=== PATIENT | male | born 1950 | race Caucasian/White ===

== ENCOUNTER 2020-12-13 22:27 | Emergency (ER) | payer OTHER, MEDICAID, SELFPAY ==
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
[2020-12-13 22:34] VITALS: BP 138/90; PULSE 100; PULSE 97; RESP 20; O2SAT 97; O2SAT 98; BMI 25.7
[2020-12-13 22:39] VITALS: BP 100/71
[2020-12-13 23:36] LABS: Basophils Absolute Auto 0.1 X10*3/uL (0.0-0.2); Basophils Percent Auto 0.3 % (0-2); Eosinophils Percent Auto 0.1 % (0-4); Hematocrit 44.3 % (42-52); Hemoglobin 14.5 g/dl (14.0-18.0); Imm Gran Abs Auto 0.08 X10*3/uL (0.00-0.03); Imm Gran Pct Auto 0.3 % (0.0-0.4); Lymphocytes Percent Auto 80.7 % (20-40); MANUAL DIFF FLAG SCAN; Mean Corpuscular HGB Conc 32.7 g/dl (31.0-36.0); Mean Corpuscular Hemoglobin 30.5 pg (27.0-33.0); Mean Corpuscular Volume 93.1 fL (80-98); Mean Platelet Volume 9.9 fL (9.4-12.4); Monocytes Absolute Auto 0.3 X10*3/uL (0.1-1.2); Neutrophils Absolute Auto 5.6 X10*3/uL (2.0-8.3); Neutrophils Percent Auto 17.6 % (45-73); Platelet Count 320 X10*3/uL (160-400); Red Blood Count 4.76 X10*6/uL (4.60-5.80); Red Cell Distribution Width 17.2 % (11.0-16.0); SCAN SMEAR FLAG 1
[2020-12-13 23:37] LABS: Lymphocytes Absolute Auto 25.3 X10*3/uL (1.2-4.9)
[2020-12-13 23:39] LABS: White Blood Count 31.3 X10*3/uL (4.8-10.8)
[2020-12-13 23:42] LABS: COVID-19 Test Negative (Negative); IDNOW Serial# 9DD0AD1C
[2020-12-13 23:50] LABS: SLIDE REVIEW VERIFIED
[2020-12-13 23:51] LABS: Ethanol 365 mg/dL
[2020-12-13 23:53] LABS: Anion Gap 18 (12-20); Blood Urea Nitrogen 14 mg/dL (9-16); Carbon Dioxide 22 mmol/L (22-29); Chloride 104 mmol/L (96-108); Estimated Glomerular Filt Rate > 60; Glucose Random 118 mg/dL (60-115); Potassium 3.9 mmol/L (3.3-5.1); Sodium 140 mmol/L (135-145)
[2020-12-14] VITALS: BP 118/81; PULSE 105; RESP 18; TEMP 36.3; O2SAT 98
[2020-12-14] LABS: Carboxyhemoglobin 2.2 %
[2020-12-14 00:26] LABS: Glucose Urine UA NEG (NEG); Leukocyte Esterase Urine NEG (NEG); Nitrite Urine NEG (NEG); Urine Blood NEG (NEG); Urine Ketones NEG (NEG); Urine Protein NEG (NEG-TRACE)
[2020-12-14 00:27] LABS: Appearance Urine CLEAR; Color Urine YELLOW
[2020-12-14 01:19] VITALS: BP 125/87; PULSE 77; RESP 18; TEMP 36.6; O2SAT 98
[2020-12-14 04:00] VITALS: RESP 18
--- NOTE | 2020-12-14 08:18 | MHC.CM.PN ---
CM RECEIVED CONSULT FOR PT ON 12/14/20, CM ATTEMPTED TO MEET WITH PT AT 8:10AM HOWEVER PT HAD ALREADY BEEN DISCHARGED.
== END 2020-12-14 05:55 | disposition home or self-care (01) ==
PROVIDERS: Nurse Practitioner Family; Emergency Provider Emergency Medicine
DX: F10.920 Alcohol use, unspecified with intoxication, uncomplicated (principal); D72.820 Lymphocytosis (symptomatic); Y90.8 Blood alcohol level of 240 mg/100 ml or more; R05 Cough; F17.200 Nicotine dependence, unspecified, uncomplicated; Z71.6 Tobacco abuse counseling; Z20.822 Contact with and (suspected) exposure to COVID-19
CPT/HCPCS: 36415; 71046; 80048; 80320; 81003; 82375; 85025; 87635; 99284

== ENCOUNTER 2022-01-08 12:46 | Emergency (ER) | payer OTHER, MEDICAID, SELFPAY ==
[2022-01-08] VITALS (9 sets, daily range): BP systolic 106–151; BP diastolic 72–93; PULSE 122–155; RESP 12–18; TEMP 36.7; O2SAT 95–98; BMI 20.5
--- NOTE | 2022-01-08 | ECG_ITS ---
Test Reason : TACHYCARDIA Blood Pressure : / mmHG Vent. Rate : 142 BPM Atrial Rate : 000 BPM P-R Int : 000 ms QRS Dur : 094 ms QT Int : 308 ms P-R-T Axes : 000 -49 048 degrees QTc Int : 473 ms Atrial fibrillation with rapid ventricular response Left axis deviation Incomplete right bundle branch block Abnormal ECG When compared with ECG of 09-AUG-2018 21:02, Atrial fibrillation has replaced Sinus rhythm Vent. rate has increased BY 48 BPM Referred By: Stacie Harvey Electronically Signed By:SEAN OLIVA MD
--- NOTE | ~2022-01-08 | XR_ITS ---
EXAMINATION: XR CHEST CLINICAL INFORMATION: Rule out pulmonary edema COMPARISON: 12/14/2020 TECHNIQUE: Frontal view of the chest was obtained. FINDINGS: The cardiac silhouette appears enlarged compared to the prior study. There is no vascular congestion or pulmonary edema. Thick-walled airways throughout consistent with COPD/emphysema. Surgical staple line in the right upper lobe. Suspect retrocardiac airspace consolidation and possible effusion. XR/XR chest 1V IMPRESSION: The cardiac silhouette appears enlarged compared to the prior exam. No vascular congestion or pulmonary edema. Left basilar airspace consolidation and question small effusion. Emphysema.
--- NOTE | ~2022-01-08 | CT_ITS ---
EXAMINATION: CT HEAD WITHOUT CONTRAST CLINICAL INFORMATION: EtOH, fall, Eliquis. COMPARISON: 08/09/2018 TECHNIQUE: Contiguous axial imaging was performed from the skull base to vertex without intravenous administration of contrast. This CT examination was performed using dose optimization techniques as appropriate, variously including the following: *Automated exposure control *Adjustment of mA and/or kV according to patient size (this includes techniques or standardized protocols for targeted exams where dose is matched to indication/reason for exam; i.e. extremities or head) *Use of iterative reconstruction technique DLP: 812 mGy-cm FINDINGS: There is no evidence of acute intracranial hemorrhage or territorial infarction. No abnormal mass effect or midline shift is seen. Schultz to white matter differentiation is well preserved. No extra-axial fluid collections are identified. The ventricles and sulcal spaces are commensurately prominent consistent with volume loss. Mild small vessel ischemic changes in the periventricular white matter are similar to prior. No calvarial or fracture. No scalp hematoma. Mild bilateral maxillary sinus disease. The mastoid air cells are patent. CT/CT head/brain wo con IMPRESSION: No acute intracranial hemorrhage.
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
--- NOTE | 2022-01-08 13:17 | ED_ITS ---
HPI - General Adult General Chief complaint: General Medical Stated complaint: ETOH Time Seen by Provider: 01/08/22 12:59 Source: patient and EMS Mode of arrival: EMS Limitations: other (Alcohol intoxication) History of Present Illness HPI narrative: Patient comes to the emergency room via EMS. Patient lives in an independent living facility. Per EMS, patient was found on the floor by a neighbor. It is unclear if patient hit his head or loss consciousness. Patient does not remember. Patient has history of atrial fibrillation, states he takes Eliquis. Per EMS, they also noted that patient also takes metoprolol. Patient states he is compliant with meds medications. Patient states that he does not know any of the medications that he takes. Patient states that he drank a bottle of bourbon. Patient states that he feels well, denies headache or neck injury, no hip pain. Patient denies chest pain, shortness of breath, no suicidal or homicidal ideation. Related Data Home Medications Medication Instructions Recorded Confirmed albuterol sulfate 90 mcg/actuation 2 puff INHALATION QID PRN 01/08/22 01/08/22 aerosol inhaler (Proventil HFA) apixaban 5 mg tablet 5 mg PO BID 01/08/22 01/08/22 atorvastatin 20 mg tablet 10 mg PO DAILY 01/08/22 01/08/22 calcium carbonate 500 mg calcium 500 mg PO Q3H PRN 01/08/22 01/08/22 (1,250 mg) chewable tablet cholecalciferol (vitamin D3) 25 25 mcg PO DAILY 01/08/22 01/08/22 mcg (1,000 unit) tablet citalopram 10 mg tablet 10 mg PO DAILY 01/08/22 01/08/22 diclofenac sodium 1 % topical gel 2 g TOPICAL TID 01/08/22 01/08/22 diltiazem HCl 180 mg capsule,24 360 mg PO DAILY 01/08/22 01/08/22 hr,extended release famotidine 20 mg tablet 20 mg PO BID 01/08/22 01/08/22 ferrous sulfate 324 mg (65 mg 324 mg PO BID 01/08/22 01/08/22 iron) tablet,delayed release gabapentin 800 mg tablet 800 mg PO BEDTIME 01/08/22 01/08/22 lactase 3,000 unit chewable tablet 3,000 unit PO TIDAC 01/08/22 01/08/22 loperamide 2 mg capsule 2 mg PO TID PRN 01/08/22 01/08/22 magnesium oxide 500 mg tablet 500 mg PO BID 01/08/22 01/08/22 melatonin 10 mg tablet 10 mg PO BEDTIME PRN 01/08/22 01/08/22 metoprolol succinate 25 mg 25 mg PO DAILY 01/08/22 01/08/22 tablet,extended release 24 hr mirtazapine 15 mg tablet 15 mg PO BEDTIME 01/08/22 01/08/22 multivitamin 1 tab PO DAILY 01/08/22 01/08/22 nicotine 14 mg/24 hr daily 1 patch TRANSDERMAL DAILY 01/08/22 01/08/22 transdermal patch pantoprazole 40 mg tablet,delayed 40 mg PO DAILY 01/08/22 01/08/22 release tamsulosin 0.4 mg capsule (Flomax) 0.4 mg PO BEDTIME 01/08/22 01/08/22 thiamine HCl (vitamin B1) 100 mg 100 mg PO DAILY 01/08/22 01/08/22 tablet tiotropium bromide 18 mcg capsule 1 cap INHALATION DAILY 01/08/22 01/08/22 with inhalation device (Spiriva with HandiHaler) trazodone 50 mg tablet 50 mg PO BEDTIME 01/08/22 01/08/22 Allergies Allergy/AdvReac Type Severity Reaction Status Date / Time No Known Allergies Allergy Verified 01/08/22 13:04 [No Known Allergies*] Review of Systems 2 Review of Systems: Constitutional : No Weight loss, No Fever, No Chills, No Night Sweats, No Fatigue, No Malaise ENT/Mouth : No Hearing loss, No Ear Pain, No Nasal Congestion, No Sinus Pain, No Hoarseness, No sore throat, No Rhinorrhea, No Swallowing Difficulty Eyes: No Eye Pain, No Swelling, No Redness, No Foreign Body, No Discharge, No Vision Changes Cardiovascular : No Chest Pain, No SOB, No Dyspnea on Exertion, No Orthopnea, No Edema, complaining of chronic palpitations Respiratory : No Cough, No Sputum, No Wheezing, No Smoke Exposure, No Dyspnea Gastrointestinal : No Nausea, No Vomiting, No Diarrhea, No Constipation, No abdominal Pain, No Hematochezia, No Melena Genitourinary : no irregular bleeding, No Dysuria, No Urinary Frequency, No Hematuria, No Urinary Incontinence, No Urgency, No Flank Pain, No Urinary Flow Changes, No Hesitancy Musculoskeletal : No joint pain, No Myalgias, No Joint Swelling Skin : No Skin Lesions, No rash Neuro : No Weakness, No Numbness, No Paresthesias, No Loss of Consciousness, No Dizziness, No Headache Psych : No Anxiety/Panic, No Depression, No SI/HI/AH/VH, No Social Issues, Heme/Lymph: No Bruising, No Bleeding,No Lymphadenopathy Endocrine : No Polyuria, No Polydipsia, No Temperature Intolerance [facility] Past Medical History Medical History (Updated 01/08/22 @ 19:21 by Stacie Harvey MD) Alcoholism Atrial fibrillation H/O: lung cancer Social History Social History Alcohol intake: current Alcohol intake frequency: 3 or more drinks per day Alcohol type: hard liquor Advance Directives: No Advance Directives Information Provided: No Physical Exam ED Vital Signs: Vital Signs - 24 hr 01/08/22 13:04 01/08/22 13:25 01/08/22 13:26 Temperature 98.1 F Pulse Rate 155 H 145 H 133 H Respiratory Rate 12 Blood Pressure 151/91 H 126/93 H 125/78 Pulse Oximetry 96 98 01/08/22 13:53 01/08/22 14:17 01/08/22 14:21 Temperature Pulse Rate 126 H 137 H 126 H Respiratory Rate 14 14 Blood Pressure 125/78 119/82 106/78 Pulse Oximetry 96 95 01/08/22 14:37 01/08/22 15:11 01/08/22 17:24 Temperature Pulse Rate 133 H 122 H 136 H Respiratory Rate 14 15 18 Blood Pressure 114/72 135/86 Pulse Oximetry 98 96 BMI result Body Mass Index 20.5 Const Other: Appearance: Alert. Oriented X3. No acute distress. Seems intoxicated Eyes: Pupils equal, round and reactive to light. ENT: Pharynx normal. Neck: Normal inspection. Neck supple. No lymph nodes noted. No crepitus CVS: Irregularly irregular heart rate of 160, Pulses normal. Normal S1 and S2 Respiratory: No respiratory distress. Breath sounds normal. No Wheezing. No rales Abdomen: Soft and nontender. No rigidity. No distention. good BS x4 Skin: Skin warm and dry. Normal skin color. Normal skin turgor. Extremities: No lower extremity edema. No Lacerations. No Rash Neuro: Oriented X 3. No motor deficit. No sensory deficit. Moving all extermities. No slurred speech. Cranial nerves 2-12 was intact Psych: Calm, cooperative, slightly intoxicated Course Course Course Narrative: When patient arrived, it was noted that the patient's heart rate is between 150 and 160, EKG shows atrial fibrillation. Patient denies any chest pain, states that he has chronic palpitations. States he is compliant with this medication but does not know which medications. Per EMS, patient takes metoprolol. Patient also takes Eliquis per EMS After 1 dose of metoprolol 5 mg IV, heart rate improved from 160-120. Patient's blood pressure 125 currently. Patient will receive another dose of IV metoprolol. Our pharmacist call the patient's pharmacy, seems that patient is not either on metoprolol or Eliquis. At this time, patient states that he does not know where he picks up his medication. When patient is more sober, will try again. After 2nd dose of metoprolol, patient's heart rate remains in the 120s, blood pressure 114. Patient was given 1 dose of calcium gluconate to prevent hypotension, since we are switching now to Cardizem push, patient may need Cardizem drip. Patient's blood pressure 134 systolic, heart rate still in the 140s despite 2 doses of metoprolol. Patient will be given 1 dose of Cardizem 20 mg. Patient is sobering up. We were able to obtain information from the pace program or the patient gets his medication. He is supposed to be on Cardizem, metoprolol, Eliquis. We were informed that the patient is not compliant with his medications. I discussed with the patient that it is likely that he will end up staying if he cannot control his heart rate. Patient states that he refuses admission. Patient is concerned about his cat at home. The patient has pace program, states that they are trying to get a legal guardian for the patient. At this time, patient is his own healthcare proxy. Patient was given 20 mg of Cardizem, heart rate now ranging from 90-110. Patient asymptomatic. Blood pressure 135 systolic. Patient's BNP is elevated, chest x-ray shows pleural effusions. I discussed with the patient that he should be admitted for some new onset CHF exacerbation. As mentioned above, patient declined. Patient states he has a cat and will not accept admission. At this time, patient is clinically sober. Patient has normal gait. As mentioned above, patient declined hospitalization. Medical Decision Making Lab Data Result diagrams: 01/08/22 13:21 01/08/22 13:21 Labs: Lab Results 01/08/22 01/08/22 01/08/22 Range/Units 13:21 13:21 13:21 WBC 21.4 H (4.8-10.8) X10*3/uL RBC 4.18 L (4.60-5.80) X10*6/uL Hgb 13.2 L (14.0-18.0) g/dl Hct 40.8 L (42.0-52.0) % MCV 97.6 (80.0-98.0) fL MCH 31.6 (27.0-33.0) pg MCHC 32.4 (31.0-36.0) g/dl RDW 18.2 H (11.0-16.0) % Plt Count 132 L (160-400) X10*3/uL MPV 9.7 (9.4-12.4) fL Immature Gran % (Auto) Cancelled Neut % (Auto) Cancelled Lymph % (Auto) Cancelled Bureau % (Auto) Cancelled Eos % (Auto) Cancelled Baso % (Auto) Cancelled Lymph # (Auto) Cancelled Bureau # (Auto) Cancelled Eos # (Auto) Cancelled Baso # (Auto) Cancelled Abs Immat Gran (auto) Cancelled Absolute Neuts (auto) Cancelled Absolute Nucleated RBC 0.000 (0.0-0.012) X10*3/uL Nucleated RBC % (auto) 0.0 (0.0-0.2) /100WBC Neutrophils % (Manual) 15 L (45-73) % Band Neutrophils % 0 L (3-5) % Lymphocytes % (Manual) 84 H (20-40) % Basophils % (Manual) 1 (0-2) % Abs Neuts (Manual) 3.2 (2.0-8.3) X10*3/uL Lymphocytes # (Manual) 18.0 H (1.2-4.9) X10*3/uL Basophils # (Manual) 0.2 (0.0-0.2) X10*3/uL Smudge Cells PRESENT Platelet Estimate DECREASED (NORMAL) Plt Morphology Comment NORMAL RBC Morphology NOTED Hypochromasia 1+ (5-14) /OIF Ovalocytes 1+ (5-14) /OIF Acanthocytes (Spur) 1+ (0-2) /OIF Sodium 147 H (135-145) mmol/L Potassium 4.2 (3.3-5.1) mmol/L Chloride 110 H (96-108) mmol/L Carbon Dioxide 25 (22-29) mmol/L Anion Gap 16 (12-20) BUN 13 (9-16) mg/dL Creatinine 0.95 (0.5-1.4) mg/dL Estim Creat Clear Calc 73.2 Estimated GFR > 60 POC Glucose (60-115) mg/dL Random Glucose 102 (60-115) mg/dL Calcium 9.3 (8.4-10.2) mg/dL Magnesium 1.7 (1.6-2.6) mg/dL Total Bilirubin 0.4 (0.0-1.0) mg/dL Direct Bilirubin 0.2 (0.0-0.5) mg/dL AST 21 (5-37) U/L ALT 14 (0-40) U/L Alkaline Phosphatase 71 (39-117) U/L Troponin I High Sens 18.0 (<3.5-35.0) ng/L B-Natriuretic Peptide 563 H (<100) pg/mL Total Protein 6.3 L (6.5-8.0) g/dL Albumin 4.1 (3.5-5.0) g/dL Ethyl Alcohol mg/dL COVID-19 (JADEN) (Negative) COVID-19 Clin Com 01/08/22 01/08/22 01/08/22 Range/Units 13:21 13:21 13:25 WBC (4.8-10.8) X10*3/uL RBC (4.60-5.80) X10*6/uL Hgb (14.0-18.0) g/dl Hct (42.0-52.0) % MCV (80.0-98.0) fL MCH (27.0-33.0) pg MCHC (31.0-36.0) g/dl RDW (11.0-16.0) % Plt Count (160-400) X10*3/uL MPV (9.4-12.4) fL Immature Gran % (Auto) Neut % (Auto) Lymph % (Auto) Bureau % (Auto) Eos % (Auto) Baso % (Auto) Lymph # (Auto) Bureau # (Auto) Eos # (Auto) Baso # (Auto) Abs Immat Gran (auto) Absolute Neuts (auto) Absolute Nucleated RBC (0.0-0.012) X10*3/uL Nucleated RBC % (auto) (0.0-0.2) /100WBC Neutrophils % (Manual) (45-73) % Band Neutrophils % (3-5) % Lymphocytes % (Manual) (20-40) % Basophils % (Manual) (0-2) % Abs Neuts (Manual) (2.0-8.3) X10*3/uL Lymphocytes # (Manual) (1.2-4.9) X10*3/uL Basophils # (Manual) (0.0-0.2) X10*3/uL Smudge Cells Platelet Estimate (NORMAL) Plt Morphology Comment RBC Morphology Hypochromasia /OIF Ovalocytes /OIF Acanthocytes (Spur) /OIF Sodium (135-145) mmol/L Potassium (3.3-5.1) mmol/L Chloride (96-108) mmol/L Carbon Dioxide (22-29) mmol/L Anion Gap (12-20) BUN (9-16) mg/dL Creatinine (0.5-1.4) mg/dL Estim Creat Clear Calc Estimated GFR POC Glucose 97 (60-115) mg/dL Random Glucose (60-115) mg/dL Calcium (8.4-10.2) mg/dL Magnesium (1.6-2.6) mg/dL Total Bilirubin (0.0-1.0) mg/dL Direct Bilirubin (0.0-0.5) mg/dL AST (5-37) U/L ALT (0-40) U/L Alkaline Phosphatase (39-117) U/L Troponin I High Sens (<3.5-35.0) ng/L B-Natriuretic Peptide (<100) pg/mL Total Protein (6.5-8.0) g/dL Albumin (3.5-5.0) g/dL Ethyl Alcohol 375 H* mg/dL COVID-19 (JADEN) Negative (Negative) COVID-19 Clin Com See Note Imaging Data CT scan - head: Radiologist's impression: [id number] [place] [address] CT Scan Report Signed Patient: Bobby Matthews MR#: [id number] : 1950 Acct:[id number] Age/Sex: 71 / M ADM Date: 01/08/22 Loc: HO.ED Attending Dr: Ordering Physician: Stacie Harvey MD Date of Service: 01/08/22 Procedure(s): CT head/brain wo con Accession Number(s): [id number] cc: Stacie Harvey MD~ EXAMINATION: CT HEAD WITHOUT CONTRAST CLINICAL INFORMATION: EtOH, fall, Eliquis.? COMPARISON: 08/09/2018 TECHNIQUE: Contiguous axial imaging was performed from the skull base to vertex without intravenous administration of contrast. This CT examination was performed using dose optimization techniques as appropriate, variously including the following: *Automated exposure control *Adjustment of mA and/or kV according to patient size (this includes techniques or standardized protocols for targeted exams where dose is matched to indication/reason for exam; i.e. extremities or head) *Use of iterative reconstruction technique DLP: 812 mGy-cm FINDINGS: There is no evidence of acute intracranial hemorrhage or territorial infarction. No abnormal mass effect or midline shift is seen. Schultz to white matter differentiation is well preserved. No extra-axial fluid collections are identified. The ventricles and sulcal spaces are commensurately prominent consistent with volume loss. Mild small vessel ischemic changes in the periventricular white matter are similar to prior. No calvarial or fracture. No scalp hematoma. Mild bilateral maxillary sinus disease. The mastoid air cells are patent. ? CT/CT head/brain wo con IMPRESSION: No acute intracranial hemorrhage. Discharge Plan Discharge Clinical Impression: Alcohol intoxication, Atrial fibrillation with rapid ventricular response, New onset of congestive heart failure Patient Disposition: Left Against Medical Advice Instructions: Heart Failure (ED), A-fib (Atrial Fibrillation) (ED), Abuse of Alcohol (DC) Additional Instructions: You refused to be admitted to the hospital. Please make sure you take your medications as prescribed and to not skip any doses. Please follow-up with your primary care physician tomorrow. If you have any worsening or new symptoms, please return to the emergency room or call 911 Prescriptions: No Action atorvastatin 20 mg Tablet 10 mg PO DAILY 0RF nicotine 14 mg/24 hr Patch 24 Hour 1 patch TRANSDERMAL DAILY 0RF loperamide 2 mg Capsule 2 mg PO TID PRN (Reason: Diarrhea) 0RF trazodone 50 mg Tablet 50 mg PO BEDTIME 0RF famotidine 20 mg Tablet 20 mg PO BID 0RF lactase 3,000 unit Tablet,Chewable 3,000 unit PO TIDAC 0RF Rx Instructions: administer with meals and/or snacks multivitamin Tablet 1 tab PO DAILY 0RF diltiazem HCl 180 mg Capsule,Extended Release 24 Hr 360 mg PO DAILY 0RF citalopram 10 mg Tablet 10 mg PO DAILY 0RF thiamine HCl (vitamin B1) 100 mg Tablet 100 mg PO DAILY 0RF tamsulosin [Flomax] 0.4 mg Capsule 0.4 mg PO BEDTIME 0RF gabapentin 800 mg Tablet 800 mg PO BEDTIME 0RF pantoprazole 40 mg Tablet,Delayed Release (Dr/Ec) 40 mg PO DAILY 0RF magnesium oxide 500 mg Tablet 500 mg PO BID 0RF calcium carbonate 500 mg calcium (1,250 mg) Tablet,Chewable 500 mg PO Q3H PRN (Reason: Heartburn) 0RF mirtazapine 15 mg Tablet 15 mg PO BEDTIME 0RF metoprolol succinate 25 mg Tablet Extended Release 24 Hr 25 mg PO DAILY 0RF albuterol sulfate [Proventil HFA] 90 mcg/actuation Hfa Aerosol Inhaler 2 puff INHALATION QID PRN (Reason: Shortness Of Breath) 0RF Spiriva with HandiHaler 18 mcg Capsule, W/Inhalation Device 1 cap INHALATION DAILY 0RF Rx Instructions: puncture 1 cap using device; one dose = 2 inhalations cholecalciferol (vitamin D3) 25 mcg (1,000 unit) Tablet 25 mcg PO DAILY 0RF ferrous sulfate 324 mg (65 mg iron) Tablet,Delayed Release (Dr/Ec) 324 mg PO BID 0RF diclofenac sodium 1 % Gel 2 g TOPICAL TID 0RF Rx Instructions: apply to single elbow, wrist or hand; for hand includes palm/fingers/back of hand melatonin 10 mg Tablet 10 mg PO BEDTIME PRN (Reason: Insomnia) 0RF apixaban 5 mg Tablet 5 mg PO BID 0RF
[2022-01-08] MEDS: Metoprolol Tartrate 5 MG/5 ML VIAL IVPUSH ×2 (13:19→14:17)
[2022-01-08 13:28] LABS: Hematocrit 40.8 % (42.0-52.0); Hemoglobin 13.2 g/dl (14.0-18.0); Mean Corpuscular HGB Conc 32.4 g/dl (31.0-36.0); Mean Corpuscular Hemoglobin 31.6 pg (27.0-33.0); Mean Corpuscular Volume 97.6 fL (80.0-98.0); Mean Platelet Volume 9.7 fL (9.4-12.4); Platelet Count 132 X10*3/uL (160-400); Red Blood Count 4.18 X10*6/uL (4.60-5.80); Red Cell Distribution Width 18.2 % (11.0-16.0)
[2022-01-08 13:31] LABS: WBC ABN SCTR FOR CBC 1; White Blood Count 21.4 X10*3/uL (4.8-10.8)
[2022-01-08 13:33] LABS: Glucose, Whole Blood 97 mg/dL (60-115)
[2022-01-08 13:45] LABS: Ethanol 375 mg/dL
[2022-01-08 13:49] LABS: Alanine Aminotransferase 14 U/L (0-40); Albumin Level 4.1 g/dL (3.5-5.0); Alkaline Phosphatase 71 U/L (39-117); Anion Gap 16 (12-20); Aspartate Amino Transferase 21 U/L (5-37); Bilirubin Direct 0.2 mg/dL (0.0-0.5); Bilirubin Total 0.4 mg/dL (0.0-1.0); Blood Urea Nitrogen 13 mg/dL (9-16); Calcium 9.3 mg/dL (8.4-10.2); Carbon Dioxide 25 mmol/L (22-29); Chloride 110 mmol/L (96-108); Creatinine Clr Calc Pharmacy 73.2; Estimated Glomerular Filt Rate > 60; Glucose Random 102 mg/dL (60-115); Magnesium 1.7 mg/dL (1.6-2.6); Potassium 4.2 mmol/L (3.3-5.1); Sodium 147 mmol/L (135-145); Total Protein 6.3 g/dL (6.5-8.0)
[2022-01-08 13:50] LABS: Band Neutrophils Percent 0 % (3-5); Basophils Abs Manual 0.2 X10*3/uL (0.0-0.2); Basophils Percent Manual 1 % (0-2); Lymphocytes Percent Manual 84 % (20-40); Neutrophils Absolute Manual 3.2 X10*3/uL (2.0-8.3); Neutrophils Percent Manual 15 % (45-73)
[2022-01-08 13:51] LABS: Acanthocytes 1+ (0-2) /OIF; Hypochromasia 1+ (5-14) /OIF; Ovalocytes 1+ (5-14) /OIF; Platelet Estimate DECREASED (NORMAL); Platelet Morphology Comment NORMAL; RBC Morphology NOTED; Smudge Cells PRESENT
[2022-01-08 13:52] LABS: B Type Natriuretic Peptide 563 pg/mL (<100)
[2022-01-08 14:03] LABS: COVID-19 Test Negative (Negative)
--- NOTE | 2022-01-08 14:41 | PHA.MEDREC ---
Pharmacy Consult ? Medication Reconciliation Pharmacy has completed the medication reconciliation. Patient is intoxicated and i was unable to get any information out him. Emergency contact number is a non working number. Contacted [place] for med list which was entered. Left message for evening pharmacist to follow up with patient when he coherent. Dr. Harvey was questioning if patient was on metoprolol and eliquis ( both meds are not filled at [facility]).
[2022-01-08] MEDS: Calcium Gluconate/NaCl,Iso-Osm 2 GM/100 ML PLAST..BAG IV (15:26)
--- NOTE | 2022-01-08 17:03 | MHC.CM.ED ---
CM received a T/C from Ana Vivas RN CM at [facility]. Pt is a client of [facility] and is well known to them. Pt has a hx of atrial fibrillation and is often times medication non-compliant. Pt is an alcoholic and often drinks, especially at the beginning of the month. [facility]'s Social Work department is very involved with this patient and they are in the process of filing for guardianship. Pt has no family and recently lost siblings. Did receive a fax from [facility], including face sheet and medication list. Will upload into [facility]. IVETH and MD reinoso.
[2022-01-08] MEDS: dilTIAZem HCL 50 MG/10 ML VIAL 20 MG IVPUSH (17:24)
--- NOTE | 2022-01-08 19:09 | PHA.MEDREC ---
Pharmacy Consult ? Medication Reconciliation Pharmacy has completed the medication reconciliation. WAS ABLE TO COMPLETE MED LIST BASED ON LIST FROM [employer] [facility] WHICH WAS FAXED TO THE ED @ 17:00 THIS EVENING
== END 2022-01-08 20:12 | disposition left against medical advice (07) ==
PROVIDERS: Emergency Provider Emergency Medicine
DX: I50.9 Heart failure, unspecified (principal); F10.220 Alcohol dependence with intoxication, uncomplicated; Y90.8 Blood alcohol level of 240 mg/100 ml or more; I48.20 Chronic atrial fibrillation, unspecified; Z91.14 Patient's other noncompliance with medication regimen; Z20.822 Contact with and (suspected) exposure to COVID-19
CPT/HCPCS: 70450; 71045; 80048; 80076; 82077; 82947; 83735; 83880; 84484; 85007; 85027; 87635; 93005; 96365; 96366; 96375; 99284; 99285; J0610

== ENCOUNTER 2022-05-11 17:34 | Emergency (ER) | payer OTHER, MEDICAID, SELFPAY ==
[2022-05-11 17:36] VITALS: BP 120/70; PULSE 60; O2SAT 96
[2022-05-11 17:51] VITALS: BP 117/68; PULSE 57; RESP 18; TEMP 36.1; O2SAT 97; BMI 28.3
== END 2022-05-11 21:23 | disposition left against medical advice (07) ==
LOC: HO.ED 21:19
PROVIDERS: Emergency Provider Emergency Medicine
DX: L03.032 Cellulitis of left toe (principal)
CPT/HCPCS: 99281

== ENCOUNTER 2023-12-05 13:46 | Day surgery (SDC) | payer OTHER, SELFPAY ==
[2023-11-26 15:11] VITALS: BMI 29.3
--- NOTE | 2023-12-05 13:56 | HO.ANESPROP2 ---
HPI - Anesthesia Eval Consult details Narrative: 73yo male patient for EGD PMFSH Active Problems Active Problems: All Active Problems (Updated 12/05/23 @ 13:57 by Qian Jorgensen MD) Atrial fibrillation (Acute) Alcoholism (Acute) Past Medical History Medical History Diabetes BPH (benign prostatic hyperplasia) Alcoholic liver disease Depression Anorexia Pulmonary nodule COPD (chronic obstructive pulmonary disease) Elevated cholesterol CHF (congestive heart failure) HTN (hypertension) Atrial fibrillation Alcoholism H/O: lung cancer Family History Family history of problems with anesthesia: No Surgical History Surgical History Hx of colonoscopy Hx of esophagogastroduodenoscopy Hx of cholecystectomy History of Problems with Anesthesia: No Social History Social History Alcohol intake: current Alcohol intake frequency: former alcohol drinker Alcohol type: hard liquor Patient Tobacco Use Status: Current everyday Tobacco user Tobacco use type: Cigarette Cigarettes Per Day: 7 Meds Allergies Allergy/AdvReac Type Severity Reaction Status Date / Time No Known Allergies Allergy Verified 12/05/23 14:05 [No Known Allergies*] Home Medications Medication Instructions Recorded Confirmed Last Taken Type albuterol sulfate 90 mcg/actuation 2 puff inhalation QID PRN 01/08/22 11/27/23 Unknown History aerosol inhaler (Proventil HFA) Shortness Of Breath atorvastatin 20 mg tablet 20 mg PO BEDTIME 01/08/22 11/27/23 Unknown History cholecalciferol (vitamin D3) 25 50 mcg PO DAILY 01/08/22 11/27/23 Unknown History mcg (1,000 unit) tablet citalopram 10 mg tablet 20 mg PO BEDTIME 01/08/22 11/27/23 Unknown History diltiazem HCl 180 mg capsule,24 360 mg PO DAILY 01/08/22 11/27/23 Unknown History hr,extended release gabapentin 800 mg tablet 800 mg PO BID 01/08/22 11/27/23 Unknown History lactase 3,000 unit chewable tablet 3,000 unit PO BEDTIME 01/08/22 11/27/23 Unknown History magnesium oxide 500 mg tablet 500 mg PO BEDTIME 01/08/22 11/27/23 Unknown History melatonin 10 mg tablet 10 mg PO BEDTIME PRN Insomnia 01/08/22 11/27/23 Unknown History metoprolol succinate 25 mg 25 mg PO DAILY 01/08/22 11/27/23 Unknown History tablet,extended release 24 hr multivitamin 1 tab PO BEDTIME 01/08/22 11/27/23 Unknown History pantoprazole 40 mg tablet,delayed 40 mg PO BEDTIME 01/08/22 11/27/23 Unknown History release tamsulosin 0.4 mg capsule (Flomax) 0.4 mg PO BEDTIME 01/08/22 11/27/23 Unknown History acalabrutinib maleate 100 mg 100 mg PO Q12H 11/27/23 11/27/23 Unknown History tablet (Calquence (acalabrutinib maleate)) aripiprazole 15 mg tablet 15 mg PO DAILY 11/27/23 11/27/23 Unknown History ferrous sulfate 325 mg (65 mg 325 mg PO BEDTIME 11/27/23 11/27/23 Unknown History iron) tablet hydrochlorothiazide 25 mg tablet 25 mg PO DAILY 11/27/23 11/27/23 Unknown History insulin glargine 100 unit/mL 30 unit subcut QPM 11/27/23 11/27/23 Unknown History subcutaneous solution lidocaine 5 % topical patch 1 patch topical DAILY 11/27/23 11/27/23 Unknown History metformin 1,000 mg tablet 1,000 mg PO BEDTIME 11/27/23 11/27/23 Unknown History psyllium husk (with sugar) 2.5 2 wafer PO DAILY 11/27/23 11/27/23 Unknown History gram oral wafer rivaroxaban 20 mg tablet (Xarelto) 20 mg PO QPM 11/27/23 11/27/23 12/02/23 History trazodone 300 mg tablet 300 mg PO BEDTIME 11/27/23 11/27/23 Unknown History umeclidinium 62.5 mcg-vilanterol 1 inh inhalation DAILY 11/27/23 11/27/23 Unknown History 25 mcg/actuation powdr for inhalation (Anoro Ellipta) Exam Height,Weight and Vital Signs: Height 6 ft 2 in Weight 103.419 kg Vital Signs Temp Pulse Resp BP Pulse Ox O2 Del Method 12/05/23 14:05 97.2 F 56 16 110/64 97 Room Air Pertinent Lab Results Pertinent Lab Results: Lab Results 12/05/23 Range/Units 14:06 POC Glucose 107 (60-115) mg/dL Airway Mallampati Class: II TM Dist: >3cm Neck ROM: Full Loose/Missing/Broken Teeth: Yes (Edentulous) Heart: Irregularly irregular Lungs: CTAB Assessment and Plan Assessment Anesthesia Assessment: Anesthesia Plan Discussed and Chart Reviewed Final Anesthetic Review Family History of Problems with Anesthesia: No History of Problems with Anesthesia: No NPO: Yes ASA Class: III Final Preanesthetic Review: No Changes in Pt Med Stat, Meds/Allgs Chart Reviewed, Consent Obtained/Reviewed and Anes Risks/Benef Reviewed Patient Risk: Intermediate Procedure Risk: Low Assessment/Block/Sedation in SS: Assess/Block/Sedation-SS Anesthetic Plan Anesthetic Plan: TIVA Disposition: Standard PACU
[2023-12-05 14:05] VITALS: BP 110/64; PULSE 56; RESP 16; TEMP 36.2; O2SAT 97; BMI 29.1
[2023-12-05 14:11] LABS: Glucose, Whole Blood 107 mg/dL (60-115)
[2023-12-05] MEDS: Lactated Ringers 1,000 ML 50 ML IVCONT (14:27)
[2023-12-05 15:36] VITALS: BP 90/63; PULSE 60; RESP 13; TEMP 36.2; O2SAT 94
--- NOTE | 2023-12-05 15:47 | P.BOP_ITS ---
Brief Operative Note Date of Service: 12/05/23 Pre-op diagnosis: Anorexia, weight loss Post-op diagnosis: other (Gastritis, GERD, R/O Severino's, Hiatal hernia) Procedure: EGD with biopsies Surgeon: Byron Olson MD Anesthesia: MAC Was an Technical Services Coordinator used for this Procedure?: No Estimated blood loss (mL): 2.0 Pathology: other (A. Descending duodenum B. Gastric antrum C. EG Junction at 40cm) Condition: stable Disposition: PACU
[2023-12-05 15:51] VITALS: BP 91/60; PULSE 59; RESP 15; O2SAT 94
[2023-12-05 16:06] VITALS: BP 100/60; PULSE 63; RESP 16; TEMP 36.3; O2SAT 95
--- NOTE | 2023-12-05 20:17 | OP_ITS ---
DATE OF SERVICE: 12/05/2023 SURGEON: Byron Olson MD INDICATIONS: The patient presents for evaluation of anorexia and weight loss. Full consent has been obtained from his guardian, Alondra Law, including risks of bleeding and perforation. PREOPERATIVE DIAGNOSIS: POSTOPERATIVE DIAGNOSIS: PROCEDURE PERFORMED: ESTIMATED BLOOD LOSS: COMPLICATIONS: ANESTHESIA: Monitored anesthesia care. ASSISTANTS: SPECIMENS: PREOPERATIVE DIAGNOSES: Anorexia and weight loss. POSTOPERATIVE DIAGNOSES: Anorexia and weight loss, rule out celiac disease, mild gastritis, small hiatal hernia, gastroesophageal reflux, rule out Severino's esophagus. DESCRIPTION OF PROCEDURE: The patient was placed in the left lateral decubitus position. The Olympus video gastroscope was passed in the posterior oropharynx and upper esophagus under direct vision. The scope was passed slowly to the distal esophagus. The gastroesophageal junction appeared at 40 cm. At this level, were small areas of possible Severino's mucosa. There was no evidence of any esophagitis, lesions, nor varices. The scope entered the stomach. There was a small hiatal hernia. The scope was advanced to the pylorus and the duodenum was cannulated to the descending portion. The duodenum, including the bulb, appeared normal without mass or ulceration. Biopsies were obtained from the descending duodenum. The scope was withdrawn back to the stomach. The gastric antrum had some mild changes of erythema and edema, but there was no evidence of any erosions or ulceration. There was good peristalsis. The scope was retroflexed visualizing the proximal stomach carefully, which appeared normal, without any sign of gastritis, gastropathy, mass, nor varices. The scope was straightened and withdrawn back to the esophagus. Biopsies were obtained at the EG junction at 40 cm. Proximal to this the esophageal mucosa appeared normal. There was no evidence of any varices nor esophagitis. The scope was withdrawn from the patient. He tolerated the procedure well and was returned to the recovery area in stable condition. IMPRESSION: 1. Gastroesophageal reflux, rule out Severino's esophagus. 2. Hiatal hernia. 3. Gastritis. 4. Rule out celiac disease. PLAN: The results of the biopsies will be checked. He is already on pantoprazole, and I would recommend continuing that to treat any component of symptomatic reflux. He was advised to resume his Xarelto in 48 hours on December 07. He was advised to stay off all aspirin and NSAIDs for at least 1 week, but he should most likely stay off those long-term given that he is on Xarelto. At this point, I do not think he needs any further GI workup. I suspect a lot of his issues with appetite and weight loss may have been related to depression and his previous alcohol abuse. At this point, I would recommend continued observation of his oral intake, maximize his nutrition, and follow his weight. He will see me again on a p.r.n. basis. MD GOPI Nair/LATONYA / [id number] MTDD
== END 2023-12-05 16:15 | disposition home or self-care (01) ==
PROVIDERS: Visit Provider Internal Medicine
PROC: 0DJ08ZZ Inspection of Upper Intestinal Tract, Via Natural or Artificial Opening Endoscopic (ICD-10-PCS; CPT 43235; principal; 2023-12-05 14:40)
DX: K29.60 Other gastritis without bleeding (principal); K44.9 Diaphragmatic hernia without obstruction or gangrene; K21.9 Gastro-esophageal reflux disease without esophagitis; R63.4 Abnormal weight loss; R63.0 Anorexia; Z68.29 Body mass index [BMI] 29.0-29.9, adult; E11.9 Type 2 diabetes mellitus without complications; I11.0 Hypertensive heart disease with heart failure; I50.9 Heart failure, unspecified; E78.5 Hyperlipidemia, unspecified; I48.91 Unspecified atrial fibrillation; J44.9 Chronic obstructive pulmonary disease, unspecified; F10.20 Alcohol dependence, uncomplicated; F17.210 Nicotine dependence, cigarettes, uncomplicated; Z85.118 Personal history of other malignant neoplasm of bronchus and lung; Z79.84 Long term (current) use of oral hypoglycemic drugs; Z79.01 Long term (current) use of anticoagulants; Z79.899 Other long term (current) drug therapy; Z79.4 Long term (current) use of insulin; Z79.02 Long term (current) use of antithrombotics/antiplatelets
CPT/HCPCS: 43239; 82947; 88305; 88313; 88342; J2704